=== PATIENT | female | born 1940 | race Caucasian/White ===

== ENCOUNTER 2021-12-29 15:57 | Emergency (ER) | payer OTHER ==
[~2021-12-29] VITALS: Ht 152.4 cm; Wt 44.5 kg
[2021-12-29] MEDS ORDERED: APRESOLINE 10MG10 MG PO (16:20)
[2021-12-29] MEDS ORDERED: VASOTEC20 M1 PO (16:20)
[2021-12-29] MEDS ORDERED: CARVEDILOL3.125 MG (16:21)
[2021-12-29] MEDS ORDERED: PEPCID AC20 MG PO (16:21)
[2021-12-29] MEDS ORDERED: RESTORIL30 MG PO (16:21)
[2021-12-29] MEDS ORDERED: PROTONIX40 MG PO (16:22)
[2021-12-29] MEDS ORDERED: NIFE60TA3 PO (16:22)
[2021-12-29] MEDS ORDERED: ZOCOR40 MG PO (16:22)
== END 2021-12-29 20:58 | disposition home or self-care (01) ==
LOC: ER 15:57
DX: B34.9 Viral infection, unspecified (principal); M54.9 Dorsalgia, unspecified; I10 Essential (primary) hypertension; Z88.6 Allergy status to analgesic agent; Z20.822 Contact with and (suspected) exposure to COVID-19

== ENCOUNTER 2022-03-23 21:24 | Emergency (ER) | payer OTHER ==
[~2022-03-23] VITALS: Ht 154.9 cm; Wt 39.5 kg
[~2022-03-23 21:24] MED LIST: APRESOLINE 10MG10 MG PO; CARVEDILOL3.125 MG; NIFE60TA3 PO; PEPCID AC20 MG PO; PROTONIX40 MG PO; RESTORIL30 MG PO; VASOTEC20 M1 PO; ZOCOR40 MG PO
[2022-03-23] MEDS ORDERED: CYCLOBENZAPRINE5 MG (23:39)
== END 2022-03-24 13:11 | disposition home or self-care (01) ==
LOC: ER 21:24
DX: S32.502A Unspecified fracture of left pubis, initial encounter for closed fracture (principal); Z88.6 Allergy status to analgesic agent; W18.30XA Fall on same level, unspecified, initial encounter; Y93.9 Activity, unspecified; Y92.9 Unspecified place or not applicable

== ENCOUNTER 2022-05-11 14:15 | Emergency (ER) | payer OTHER ==
[~2022-05-11] VITALS: Ht 152.4 cm; Wt 54.4 kg
[~2022-05-11 14:15] MED LIST changes: +CYCLOBENZAPRINE5 MG
[2022-05-11] MEDS ORDERED: FEXMID7.5 MG PO (14:31)
[2022-05-11] MEDS ORDERED: DOLOGESIC 500-1 EACH PO (14:32)
[2022-05-11] MEDS ORDERED: APRESOLINE 10MG10 MG PO (14:33)
== END 2022-05-12 13:59 | disposition home or self-care (01) ==
LOC: ER 14:15
DX: M75.32 Calcific tendinitis of left shoulder (principal); Z20.822 Contact with and (suspected) exposure to COVID-19; Z88.6 Allergy status to analgesic agent

== ENCOUNTER → 2022-06-04 | Emergency (ER) | payer OTHER ==
[~2022-06-04] VITALS: Ht 154.9 cm; Wt 47.6 kg
[~2022-06-04] MED LIST changes: +DOLOGESIC 500-1 EACH PO; +FEXMID7.5 MG PO
== END | disposition home or self-care (01) ==
LOC: ER 12:02
DX: S00.03XA Contusion of scalp, initial encounter (principal); W19.XXXA Unspecified fall, initial encounter; Y93.89 Activity, other specified; Y92.098 Other place in other non-institutional residence as the place of occurrence of the external cause; R41.82 Altered mental status, unspecified; R51.9 Headache, unspecified; R42 Dizziness and giddiness; E86.0 Dehydration; I10 Essential (primary) hypertension; N28.9 Disorder of kidney and ureter, unspecified; I51.9 Heart disease, unspecified; Z88.6 Allergy status to analgesic agent